=== PATIENT | male | born 1995 | race Two or more races ===

== ENCOUNTER 2019-06-19 22:32 | Emergency (ER) | payer SELFPAY ==
[~2019-06-19] VITALS: Ht 167.6 cm; Wt 70.0 kg
[2019-06-19] MEDS ORDERED: SODIUM CHLORIDE 0.9% 1,000 ML IV SCH (22:45)
[2019-06-19] MEDS ORDERED: EPINEPHRINE 1:1000 1 MG/ML AMP IM ONE (22:45)
[2019-06-19] MEDS ORDERED: METHYLPREDNISOLONE SOD SUCC 125 MG/2 ML VIAL IV ONE (22:45)
[2019-06-19] MEDS ORDERED: DIPHENHYDRAMINE 50MG/ML VIAL IV ONE (22:45)
[2019-06-19] MEDS ORDERED: FAMOTIDINE 20MG/2ML VIAL IV ONE (22:45)
[2019-06-19] MEDS ORDERED: SODIUM CHLORIDE 0.9% 1,000 ML IV ONE (23:51)
[2019-06-20] MEDS ORDERED: EPINEPHRINE 1:1000 1 MG/ML AMP IM ONE ×2 (01:15)
[2019-06-20 10:56] VITALS: BP 106/61
== END 2019-06-20 10:57 | disposition left against medical advice (07) ==
LOC: ER 23:03 → EDBEDREQ 06-20 01:34 → EDBEDREQTM 06-20 01:34 → ER 06-20 10:57 → CANBEDREQ 06-20 12:18
DX: T78.40XA Allergy, unspecified, initial encounter (principal); X58.XXXA Exposure to other specified factors, initial encounter; Z91.013 Allergy to seafood; F17.200 Nicotine dependence, unspecified, uncomplicated
CPT/HCPCS: 96372; 96374; 96375; 99291; J1200; J2930; J3490; J7030

== ENCOUNTER 2020-01-01 19:49 | Emergency (ER) | payer MEDICAID ==
[~2020-01-01] VITALS: Ht 175.3 cm; Wt 78.0 kg
[2020-01-01] MEDS ORDERED: SODIUM CHLORIDE 0.9% 1,000 ML IV SCH (20:28)
[2020-01-01] MEDS ORDERED: ACETAMINOPHEN 325MG TABLET PO ONE (20:30)
[2020-01-01] MEDS ORDERED: FAMOTIDINE 20MG/2ML VIAL IV ONE (20:30)
[2020-01-01] MEDS ORDERED: EPINEPHRINE 1:1000 1 MG/ML AMP IM ONE (20:30)
[2020-01-01] MEDS ORDERED: DIPHENHYDRAMINE 50MG/ML VIAL IV ONE (20:30)
[2020-01-01] MEDS ORDERED: METHYLPREDNISOLONE SOD SUCC 125 MG/2 ML VIAL IV ONE (20:30)
[2020-01-01 23:15] VITALS: BP 118/62
== END 2020-01-01 23:15 | disposition home or self-care (01) ==
LOC: ER 19:49
DX: T78.02XA Anaphylactic reaction due to shellfish (crustaceans), initial encounter (principal); L53.9 Erythematous condition, unspecified; F17.200 Nicotine dependence, unspecified, uncomplicated; R06.02 Shortness of breath; R11.10 Vomiting, unspecified; R51 Headache; R07.89 Other chest pain; X58.XXXA Exposure to other specified factors, initial encounter; Y93.89 Activity, other specified; Y92.89 Other specified places as the place of occurrence of the external cause; Y99.8 Other external cause status
CPT/HCPCS: 96372; 96374; 96375; 99285; J1200; J2930; J3490